=== PATIENT | male | born 1950 | race Caucasian/White ===

== ENCOUNTER 2016-12-24 11:22 | Inpatient (IN) | payer MEDICARE, BC ==
[~2016-12-24] VITALS: Ht 177.8 cm; Wt 110.6 kg
[~2016-12-24 11:22] MED LIST: ASA CHILDREN'S81 MG PO; AUGMENTIN875 MG PO; BENADRYL-DPS25 MG PO; BIPAP IH; CENTRUM SILVER1 EAC2 PO; CITRATE OF MAG296 ML PO; COUMADIN7.5 MG PO; CULTURELLE1 CAP PO; DELTASONE DPS5 MG PO; DULCOLAX-DPS5 MG PO; DUONEB DPS3 ML IH; FIBERCON DPS625 MG PO; FLOMAX DPS0.4 MG PO; HYZAAR 50-12.51 EACH PO; HYZAAR 50-12.51 TAB PO; LASIX DPS20 MG PO; LOPRESSOR DPS50 MG PO; LOVENOX DP40 MG/0.4 SQ; MAALOX DPS30 ML PO; METAMUCIL PACK3.4 GM PO; METOPROLOL TART25 MG PO; MICRO-K DPS10 MEQ PO; MILK OF MAGNESI10 ML PO; MIRALAX PACKET17 GM PO; MONTELUKAST SOD10 MG PO; NASACORT16.9 ML NS; NEURONTIN DPS100 MG PO; NEURONTIN DPS300 MG PO; NORCO 5-325 TA1 EACH PO; OMEGA-3 DPS1000 MG PO; OXYGEN IH; PRILOSEC DPS20 MG PO; PRILOSEC20 MG PO; PROTONIX40 MG PO; SURFAK DPS240 MG PO; TESSALON PERLE100 M1 PO; THERA1 EACH PO; THERAPEUTIC MUL1 TAB PO; TOPROL XL DPS25 MG PO; TOPROL XL DPS50 MG PO; TYLENOL DPS325 MG PO; TYLENOL325 MG PO; ULTRAM DPS50 MG PO; VITAMIN D1000 UNI1 PO; ZOSYN 3.3753.375 GM IV; [UNRECOGNIZED DRUG - OTHER] OD
[2016-12-25] MEDS ORDERED: DUONEB DPS3 ML IH (11:49)
[2016-12-25] MEDS ORDERED: PEPCID DPS20 MG PO (11:49)
[2016-12-25] MEDS ORDERED: MERREM1 GM IV (11:50)
--- NOTE | 2016-12-30 14:39 | NUR ---
DAY SHIFT SUMMARY: EATS INDPENDENTLY, CUING FOR TOILETING, MEDS FOR BOWELS PRN, MOD ASSIST OF 1 FOR BED/CHAIR TRANSFERS; MIN ASSIST OF 1 FOR TOILET TRANSFERS; 2 STAFF REQUIRED FOR AMBULATION-TOTAL ASSIST.
--- NOTE | 2017-01-05 19:57 | NUR ---
DAY SHIFT SUMMARY: EATS INDEPENDENT, TAKES LONGER THAN NORMAL FOR GROOMING, USES SHOWER CHAIR FOR SHOWERING, USES DEVICE FOR DRESSSING, TOILETING AND TOILET TRANSFERS, BED/CHAIR TRANSFERS ARE SUPERVISED, MIN ASSIST FOR TRANSFER INTO SHOWER, PLANS TO USE W/C AT HOME TOO
[2017-01-06] MEDS ORDERED: MICRO-K DPS10 MEQ PO (16:40)
[2017-01-06] MEDS ORDERED: FLOMAX DPS0.4 MG PO (16:40)
[2017-01-06] MEDS ORDERED: CENTRUM CHEWAB1 EACH PO (16:41)
[2017-01-06] MEDS ORDERED: LASIX DPS20 MG PO (16:41)
[2017-01-06] MEDS ORDERED: SINGULAIR10 MG PO (16:41)
[2017-01-06] MEDS ORDERED: MIRALAX PACKET17 GM PO ×2 (16:42→16:43)
[2017-01-06] MEDS ORDERED: MIRAFIBER PO (16:42)
[2017-01-06] MEDS ORDERED: VITAMIN D31000 UNIT PO (16:43)
[2017-01-06] MEDS ORDERED: COUMADIN2.5 MG PO (16:43)
[2017-01-06] MEDS ORDERED: LOPRESSOR DPS50 MG PO (16:44)
[2017-01-06] MEDS ORDERED: LIORESAL DPS20 MG PO (16:44)
[2017-01-06] MEDS ORDERED: COUMADIN5 MG PO (16:44)
[2017-01-06] MEDS ORDERED: VITAMIN B-12500 MCG PO (16:45)
[2017-01-06] MEDS ORDERED: MAALOX DPS30 ML PO (16:45)
[2017-01-06] MEDS ORDERED: MUCINEX600 MG PO (16:45)
[2017-01-06] MEDS ORDERED: TYLENOL DPS325 MG PO (16:45)
[2017-01-06] MEDS ORDERED: MUCOMYST 20% DP30 ML IH (16:46)
[2017-01-06] MEDS ORDERED: DUONEB DPS3 ML PO (16:46)
--- NOTE | 2017-02-07 20:05 | DS ---
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 Other diagnoses per hospital course below. HOSPITAL COURSE: Please see my initial H and P for details prior to transfer to the IRU. Coumadin was continued for prophylaxis. Pain and bowel regimen adjusted. Restarted MiraLax. Started Mucinex. Lab was monitored regularly. Dietitian followed to optimize nutrition. Pharmacy followed to optimize medication management. He was continued on Augmentin 875 mg p.o. b.i.d. x10 days for pneumonia. Neurontin was decreased to 100 mg. DuoNeb adjusted down b.i.d. and b.i.d. p.r.n. Pepcid decreased to limit risk of C. diff and help absorption. PVR was obtained, was normal. Tried going off Flomax. Discontinued Neurontin as no longer necessary. Pain was controlled. Pepcid no longer necessary. GERD was controlled. Scheduled DuoNeb was discontinued, just to use p.r.n. One PVR did come back to 243 mL. INR was checked and Coumadin adjusted. Acid reflux did recur, so we restarted Pepcid and Maalox as needed. DuoNeb was restarted scheduled and p.r.n. NOPS was consulted for adjusting bilateral upright AFOs for better ankle dorsiflexion and ambulation, which did help. Mucomyst given for difficulty clearing secretions and that helped quite a bit, helped to clear him up. Supratherapeutic INR for which Coumadin was decreased. Pepcid was discontinued again. Changed scheduled DuoNeb to daily. B12 was given p.o. PVR came down to 125 mL. We tried baclofen at night to help control spasms that seemed to work well. PVRs remained low off Flomax. Scheduled DuoNeb no longer necessary. Mucinex changed to p.r.n. Lopressor decreased. Flomax restarted for BPH, the patient wished. Augmentin was finished by time of discharge. Lasix was restarted for some edema and we used EdemaWear to lower limbs. Coumadin held due to another supratherapeutic INR and adjusted before discharge. The patient was medically stable at the time of discharge. Please see IRU interdisciplinary discharge summary details regarding progress in therapy. DISCHARGE DISPOSITION: Home. DISCHARGE MEDICATIONS: Please see discharge med rec. FOLLOWUP: Dr. Hunter, January 13. PT/INR, 01/08/2017 at [facility]. We will continue for RN PT/OT and home health aide. Uvaldo Snow MD/ modl JOB #: [id number] ADMIT: 12/24/2016 RM/LOC: [address] [facility] MR#: [id number] [address] MIGUELITO TIRADO [address] [place] [address] General Discharge Summary SEX: M AGE: 66 : 1950 CC:
== END 2017-01-05 12:00 | disposition home health service (06) | DRG 945 ==
LOC: 6IRU 11:22
PROVIDERS: ADMIT Physical Medicine & Rehabilitation
DX: R53.81 Other malaise (principal); J69.0 Pneumonitis due to inhalation of food and vomit; D68.51 Activated protein C resistance; Z99.81 Dependence on supplemental oxygen; R13.10 Dysphagia, unspecified; Q79.6 Ehlers-Danlos syndromes; I48.91 Unspecified atrial fibrillation; J39.8 Other specified diseases of upper respiratory tract; A08.4 Viral intestinal infection, unspecified; R09.02 Hypoxemia; M21.379 Foot drop, unspecified foot; M62.81 Muscle weakness (generalized); R25.2 Cramp and spasm; N40.0 Benign prostatic hyperplasia without lower urinary tract symptoms; M51.16 Intervertebral disc disorders with radiculopathy, lumbar region; E53.8 Deficiency of other specified B group vitamins; D64.9 Anemia, unspecified; I10 Essential (primary) hypertension; K21.9 Gastro-esophageal reflux disease without esophagitis; Z79.01 Long term (current) use of anticoagulants; Z86.718 Personal history of other venous thrombosis and embolism; Z86.711 Personal history of pulmonary embolism; Z95.2 Presence of prosthetic heart valve